=== PATIENT | male | born 1980 | race Two or more races ===

== ENCOUNTER 2016-08-10 23:20 | Emergency (ER) | payer OTHER ==
--- NOTE | ~2016-08-10 | CR72 ---
[facility] A Service of [facility] & [facility] [place] RADIOLOGY TEXT RESULTS PATIENT: MICHELE AYALA LOCATION: [facility] : 82 UNIT #: [id number] AGE: [address]: Gina Castro MD SEX: M ORDER DR: [id number] [facility] [place] [address] [place], [place] [address] [id number] MR#: [id number] Acc #: [id number] NAME: MICHELE AYALA : 1980 SEX: M STUDY DATE/TIME: 08/11/2016 0:05 UNIT: [facility] ROOM: STUDY DESCRIPTION: CR Chest Single View Portable Attending Physician: Gina Castro M.D. Ordering Physician: Gina Castro M.D. Primary Care Physician: Primary Care Physician No MEDICAL IMAGING REPORT This report is preliminary unless electronic signature is present EXAM Portable chest HISTORY Chest pain, shortness of air x3 days. FINDINGS A single AP portable view of the chest shows both lungs to be clear. The heart is normal in size. The mediastinal contour is normal. No significant bone abnormalities are seen. IMPRESSION Normal portable chest. Dictated by... Jerome Serrano M.D. THIS IS AN ELECTRONICALLY VERIFIED REPORT Jerome Serrano M.D. at 08/11/2016 9:59 PM Anders TD: 08/11/2016 09:22 JOB #: [id number] MEDICAL IMAGING REPORT Page 1 of 1 COPY
--- NOTE | ~2016-08-10 | EKG ---
PATIENT: MICHELE AYALA UNIT #: [id number] Ventricular Rate: 53 BPM Atrial Rate: 53 BPM P-R Interval: 212 ms QRS Duration: 98 ms Q-T Interval: 432 ms QTC Calculation(Bezet): 405 ms P Langford: 51 degrees Calculated R Langford: 61 degrees Calculated T Langford: 48 degrees Diagnosis Line: Sinus bradycardia with sinus arrhythmia with 1st Diagnosis Line: degree A-V block Diagnosis Line: Otherwise normal ECG Diagnosis Line: No previous ECGs available Diagnosis Line: Confirmed by SURINDER SIMS MD ([id number]) on 08/13/2016 Diagnosis Line: 9:42:26 AM INTERPRETING MD: LEVI LEDESMA
[2016-08-10 22:13] LABS: BASOPHIL# 0.1 X10e3 (0-0.3); BASOPHIL% 1.2 % (0-2.5); EOSINOPHIL# 0.5 X10e3 (0-0.7); EOSINOPHIL% 6.5 % (0.0-7.0); HEMATOCRIT 42.8 % (38.0-50.0); HEMOGLOBIN 14.4 gm/dL (13.0-16.0); LYMPHOCYTE# 3.7 X10e3 (1.0-3.5); LYMPHOCYTE% 44.5 % (17.0-45.0); MEAN CELL VOLUME 79.9 FL (83-96); MEAN CORPUSCULAR HEMOGLOBIN 26.9 PG (28-34); MEAN CORPUSCULAR HGB CONC 33.7 g/dL (30-36); MEAN PLATELET VOLUME 8.7 FL (6.5-11.5); MONOCYTE# 0.7 X10e3 (0-1.0); MONOCYTE% 8.3 % (3.0-12.0); NEUTROPHIL# 3.3 X10e3 (1.5-7.1); NEUTROPHIL% 39.5 % (40-75); PLATELET COUNT 205 X10e3 (140-420); RED BLOOD COUNT 5.36 X10e (3.90-5.60); WHITE BLOOD COUNT 8.4 X10e3 (4.0-10.5)
[2016-08-10 22:15] LABS: DIFF IND NO
[2016-08-10 22:38] LABS: ALBUMIN SERUM 4.4 g/dL (3.5-5.0); BILIRUBIN,TOTAL 0.5 mg/dL (0.2-2.0); BUN/CREATININE RATIO 16.66; CALCIUM SERUM 8.9 mg/dL (8.4-10.2); CREATININE SERUM 0.9 mg/dL (0.6-1.4); POTASSIUM 3.9 mmol/L (3.5-5.1); PROTEIN TOTAL SERUM 7.8 g/dL (6.0-8.3)
[2016-08-10 22:47] LABS: BILIRUBIN, DIRECT 0.1 mg/dL (0.0-0.2); BILIRUBIN,INDIRECT 0.4 mg/dL (0.0-0.9)
[2016-08-10 23:04] LABS: POC - CKMB <1.0 ng/mL (0.0-7.9); POC - TROPONIN <0.05 ng/mL (<=0.05)
[2016-08-11 01:21] LABS: POC - CKMB <1.0 ng/mL (0.0-7.9); POC - TROPONIN <0.05 ng/mL (<=0.05)
== END 2016-08-11 02:20 | disposition home or self-care (01) ==
LOC: CED 23:20
PROVIDERS: Emergency Medicine
DX: R00.2 Palpitations (principal)
CPT/HCPCS: 71010; 80048; 80076; 82553; 84484; 85025; 93005; 99284